=== PATIENT | male | born 1970 | race American Indian/Alaskan Native ===

== ENCOUNTER 2019-10-23 19:31 | Emergency (ER) | payer SELFPAY ==
--- NOTE | 2019-10-23 20:15 | Event Note ---
Date: 10/23/19 49-year-old gentleman presenting with resolved chest heaviness. He is not having pain at this time. He denies shortness of breath, vomiting and diaphoresis. He describes nonspecific central chest pressure, present 3 days ago, and discomfort while sleeping. He is initially afebrile with reassuring vital signs and looks quite comfortable. He states he is not having pain at this time, and denies vomiting, diaphoresis and shortness of breath. His EKG is morphologically abnormal, but in my opinion, does not meet STEMI criteria, it does appear to show repolarization, and left ventricular hypertrophy. The EKG is transmitted to our ingot weigher on-call, Dr. Wilkins, who also agrees that this EKG does not meet STEMI criteria.
[2019-10-23] MEDS ORDERED: ASPIRIN 325 MG TAB PO ONE (20:25)
[2019-10-23 20:44] LABS: Basophils # (Auto) 0.1 K/mm3 (0.0-0.1); Eosinophils # (Auto) 0.1 K/mm3 (0.0-0.4); Eosinophils % (Auto) 1.2 % (0.0-4.3); Hematocrit 45.4 % (35.5-45.6); Hemoglobin 15.2 gm/dl (11.8-15.2); Lymphocytes # (Auto) 2.2 K/mm3 (1.2-5.4); Lymphocytes % (Auto) 42.7 % (13.4-35.0); Mean Corpuscular HGB Conc 33 % (32-34); Mean Corpuscular Volume 93 fl (84-94); Monocytes # (Auto) 0.6 K/mm3 (0.0-0.8); Monocytes % (Auto) 11.2 % (0.0-7.3); Platelet Count 237 K/mm3 (140-440); Red Cell Distribution Width 13.6 % (13.2-15.2)
--- NOTE | 2019-10-23 20:47 | XRay Report ---
CHEST 1 VIEW INDICATION / CLINICAL INFORMATION: Chest Pain. COMPARISON: None available. FINDINGS: SUPPORT DEVICES: None. HEART / MEDIASTINUM: No significant abnormality. LUNGS / PLEURA: No significant pulmonary or pleural abnormality. No pneumothorax. ADDITIONAL FINDINGS: No significant additional findings. IMPRESSION: 1. No acute findings. Signer Name: Simon Rivera MD Signed: 10/23/2019 8:43 PM Workstation Name: [id number]
[2019-10-23 21:07] LABS: BUN/Creatinine Ratio 16; Blood Urea Nitrogen 13 mg/dL (9-20); Calcium 9.6 mg/dL (8.4-10.2); Hemolysis Index 12
--- NOTE | 2019-10-23 22:24 | Emergency Department Report ---
ED Chest Pain HPI - General Chief Complaint: Chest Pain Stated Complaint: HEAVY CHEST / LT ARM PAIN Time Seen by Provider: 10/23/19 21:13 Source: patient Mode of arrival: Ambulatory Limitations: No Limitations - History of Present Illness Initial Comments: Patient is a 49-year-old gentleman who is presenting with recent history of chest discomfort. Patient states last night he was having some heaviness on his chest as though something was pressing down on him while he was asleep. This was associated with some mild shortness of breath. There is no exertional component as the patient was asleep. Patient is stated he did feel as though hi s chest was hot as though he had eaten some hot food however he denies any spicy foods eaten last night. Patient states earlier today while at work he began having some heart palpitations and felt as though his heart was pounding within his chest. Again the patient had some mild shortness of breath. Patient denies history of hypertension hyperlipidemia diabetes or coronary artery disease. Patient states he feels better now that he is here Severity scale (0 -10): 0 - Related Data Previous Rx's Medication Instructions Recorded Last Taken Type Amlodipine Besylate [Norvasc] 5 mg PO DAILY #30 tablet 10/23/19 Unknown Rx Allergies Allergy/AdvReac Type Severity Reaction Status Date / Time No Known Allergies Allergy Verified 10/23/19 19:55 Heart Score - HEART Score History: Slightly suspicious EKG: Normal Age: 45-65 Risk factors: No known risk factors Troponin: < normal limit HEART Score: 1 ED Review of Systems ROS: Stated complaint: HEAVY CHEST / LT ARM PAIN Other details as noted in HPI Comment: All other systems reviewed and negative ED Past Medical Hx - Past Medical History Previous Medical History?: No - Surgical History Past Surgical History?: No - Social History Smoking Status: Never Smoker - Medications Home Medications: Home Medications Medication Instructions Recorded Confirmed Last Taken Type Amlodipine Besylate [Norvasc] 5 mg PO DAILY #30 tablet 10/23/19 Unknown Rx ED Physical Exam - General Limitations: No Limitations ED Course Vital Signs 10/23/19 10/23/19 10/23/19 20:08 20:47 21:01 Temperature 98.2 F Pulse Rate 63 55 L 58 L Respiratory 18 19 13 Rate Blood Pressure 164/104 O2 Sat by Pulse 98 99 98 Oximetry 10/23/19 10/23/19 10/23/19 21:31 21:45 22:00 Temperature Pulse Rate 58 L 60 57 L Respiratory 17 12 14 Rate Blood Pressure 68/34 144/102 137/98 O2 Sat by Pulse 99 100 100 Oximetry - Reevaluation(s) Reevaluation #1: 10/23/19 22:23 Patient is noted to have elevated blood pressure on arrival. Patient states he does not have a history of hypertension. This could be a leading factor to the patient's chest discomfort. First troponin is -1/2 troponin will be reviewed and if also negative the patient likely will be discharged home to follow-up with outpatient cardiology services. ED Medical Decision Making - Lab Data Result diagrams: 10/23/19 20:29 10/23/19 20:29 Lab Results 10/23/19 10/23/19 Range/Units 20:29 20:29 WBC 5.2 (4.5-11.0) K/mm3 RBC 4.90 (3.65-5.03) M/mm3 Hgb 15.2 (11.8-15.2) gm/dl Hct 45.4 (35.5-45.6) % MCV 93 (84-94) fl MCH 31 (28-32) pg MCHC 33 (32-34) % RDW 13.6 (13.2-15.2) % Plt Count 237 (140-440) K/mm3 Lymph % (Auto) 42.7 H (13.4-35.0) % [place] % (Auto) 11.2 H (0.0-7.3) % Eos % (Auto) 1.2 (0.0-4.3) % Baso % (Auto) 1.0 (0.0-1.8) % Lymph # 2.2 (1.2-5.4) K/mm3 [place] # 0.6 (0.0-0.8) K/mm3 Eos # 0.1 (0.0-0.4) K/mm3 Baso # 0.1 (0.0-0.1) K/mm3 Seg Neutrophils % 43.9 (40.0-70.0) % Seg Neutrophils # 2.3 (1.8-7.7) K/mm3 Sodium 138 (137-145) mmol/L Potassium 4.6 (3.6-5.0) mmol/L Chloride 101.1 (98-107) mmol/L Carbon Dioxide 21 L (22-30) mmol/L Anion Gap 21 mmol/L BUN 13 (9-20) mg/dL Creatinine 0.8 (0.8-1.5) mg/dL Estimated GFR > 60 ml/min BUN/Creatinine Ratio 16 % Glucose 102 H (75-100) mg/dL Calcium 9.6 (8.4-10.2) mg/dL Troponin T < 0.010 (0.00-0.029) ng/mL - EKG Data -: EKG Interpreted by Me EKG shows normal: sinus rhythm, axis, intervals, QRS complexes, ST-T waves Rate: normal - EKG Data Interpretation: normal EKG (early repolerization pattern) - Radiology Data Ordering Physician: ED MD MELANIA Date of Service: 10/23/19 Procedure(s): XR chest 1V ap Accession Number(s): [id number] cc: ED MD MELANIA Fluoro Time In Minutes: CHEST 1 VIEW INDICATION / CLINICAL INFORMATION: Chest Pain. COMPARISON: None available. FINDINGS: SUPPORT DEVICES: None. HEART / MEDIASTINUM: No significant abnormality. LUNGS / PLEURA: No significant pulmonary or pleural abnormality. No pneumothorax. ADDITIONAL FINDINGS: No significant additional findings. IMPRESSION: 1. No acute findings. Signer Name: Simon Rivera MD Signed: 10/23/2019 8:43 PM Workstation Name: [id number] Critical care attestation.: If time is entered above; I have spent that time in minutes in the direct care of this critically ill patient, excluding procedure time. ED Disposition Clinical Impression: Atypical chest pain, Hypertensive urgency Condition: Stable Instructions: Chest Pain (ED), Hypertension (ED) Additional Instructions: Referral to [facility] has been sent on your behalf. They will contact you to set up an appointment Prescriptions: Amlodipine Besylate [Norvasc] 5 mg PO DAILY #30 tablet Referrals: PRIMARY CAREMD [Primary Care Provider] - 3-5 Days
[2019-10-24 01:21] VITALS: BP 122/83
== END 2019-10-24 01:21 | disposition home or self-care (01) ==
LOC: ED 19:31
DX: R07.89 Other chest pain (principal); I16.0 Hypertensive urgency; I10 Essential (primary) hypertension; Z79.899 Other long term (current) drug therapy
CPT/HCPCS: 36415; 71045; 80048; 84484; 85025; 93005; 93010